=== PATIENT | male | born 1965 | race African-American/Black ===

== ENCOUNTER 2024-01-16 13:17 | Emergency (ER) | payer MEDICAID, OTHER ==
[~2024-01-16] VITALS: Ht 182.9 cm; Wt 90.0 kg
[2024-01-16 13:20] VITALS: O2SAT 98
[2024-01-16] MEDS: LEVETIRACETAM 1000MG PREMIX 100 ML IV ONE (13:48)
[2024-01-16 15:12] LABS: BASOPHILS % 0.6 % (0.0-2.0); EOSINOPHILS % 0.3 % (0.0-5.0); HEMATOCRIT. 39.2 % (42.0-52.0); HEMOGLOBIN. 13.2 g/dL (14.0-18.0); LYMPHOCYTES % 28.3 % (20.0-50.0); MEAN CORPUSCULAR HEMOGLOBIN 33.2 pg (28.0-32.0); MEAN CORPUSCULAR HGB CONC 33.8 g/dL (31.0-37.0); MEAN CORPUSCULAR VOLUME 98.2 fL (80.0-94.0); MEAN PLATELET VOLUME 9.2 fl (7.4-10.4); MONOCYTES % 10.1 % (2.0-8.0); NEUTROPHILS % 60.7 % (40.0-76.0); PLATELET 162 x1000/uL (130-400); RED BLOOD CELL COUNT 3.99 mill/uL (4.7-6.1); RED CELL DISTRIBUTION WIDTH 15.1 % (11.6-14.6)
[2024-01-16 15:20] LABS: CHLORIDE 107 mEq/L (98-107); SODIUM 144 mEq/L (136-145)
[2024-01-16 15:21] LABS: CALCIUM 9.5 mg/dL (8.7-10.4); CARBON DIOXIDE 34 mEq/L (21-32)
[2024-01-16 15:26] LABS: CREATININE 1.1 mg/dL (0.6-1.3); GLUCOSE 81 mg/dL (70-105); UREA NITROGEN BLOOD 17 mg/dL (9-23)
[2024-01-16 15:28] LABS: ALANINE AMINOTRANSFERASE 9 IU/L (10-49); ASPARTATE AMINOTRANSFERASE 18 IU/L (<34); BILIRUBIN DIRECT 0.2 mg/dL (<=3.0); BILIRUBIN TOTAL 0.5 mg/dL (0.1-1.0); PHOSPHORUS 2.3 mg/dL (2.5-4.9); PROTEIN TOTAL 7.2 g/dL (6.0-8.3)
[2024-01-16 15:40] LABS: ETHANOL BLOOD < 10 mg/dL (<10)
[2024-01-16] MEDS: POTASSIUM-SODIUM PHOSPHATE POWDER PACKET PO ONE (17:34)
[2024-01-16 18:48] VITALS: BP 123/79; PULSE 70; RESP 19; TEMP 37.00296; O2SAT 100
== END 2024-01-16 19:48 | disposition home or self-care (01) ==
LOC: ER 13:30
DX: G40.909 Epilepsy, unspecified, not intractable, without status epilepticus (principal); I10 Essential (primary) hypertension; Z98.890 Other specified postprocedural states
CPT/HCPCS: 80076; 80048; 80320; 83735; 84100; 85025; 36415; 70450; 93005; 96365; 99285; J1953; G0480